=== PATIENT | male | born 1970 | race Caucasian/White ===

== ENCOUNTER 2017-02-20 22:03 | Inpatient (IN) | payer OTHER ==
[2017-02-20 22:13] LABS: BASOPHIL 0.2 % (0-2); EOSINOPHIL 0.4 % (0-5); HGB 16.8 g/dl (12.5-16.0); LYMPHOCYTE 12.4 % (15-48); MCH 29.7 pg (25.0-31.0); MCV 84.8 fL (78.0-100.0); MPV 11.4 fL (6.0-9.5); PLT 211 K/uL (150-400); RBC 5.66 M/uL (4.20-5.40); RDW 14.6 % (11.5-14.0)
[2017-02-20 22:14] LABS: WBC 16.9 K/uL (4.0-10.5)
[2017-02-20 22:24] LABS: INR 1.12 (0.9-1.2); PTT 24.1 SECONDS (23.2-31.4)
[2017-02-20 22:25] LABS: D-DIMER 0.74 ug/mLFEU (0.00-0.41)
[2017-02-20 22:34] LABS: ALBUMIN 4.4 g/dL (3.5-5.0); ALKALINE PHOSHATASE 139 U/L (42-98); ALT 150 U/L (2-31); AST 205 U/L (0-31); BILIRUBIN - TOTAL 2.3 mg/dL (0.1-1.0); BUN 12 mg/dL (6-25); CHLORIDE 99 mmol/L (98-107); CPK 75 U/L (26-140); CREATININE 1.1 mg/dL (0.5-1.0); GLOBULIN (CALCULATION) 2.5 g/dL (2.2-4.2); GLUCOSE 184 mg/dL (70-105); MAGNESIUM 1.93 mg/dL (1.40-2.10); MYOGLOBIN 21 ng/mL (26-65); POTASSIUM 3.7 mmol/L (3.5-5.1); PRO-BNP 29 pg/mL (0-125); TOTAL PROTEIN 6.9 g/dL (6.4-8.3); TROPONIN T < 0.010 ng/mL
[2017-02-20 22:40] LABS: LIPASE >600 U/L (13-60)
[2017-02-21 05:09] LABS: BASOPHIL 0.1 % (0-2); EOSINOPHIL 0.1 % (0-5); HGB 16.4 g/dl (12.5-16.0); LYMPHOCYTE 2.5 % (15-48); MCHC 34.9 g/dL (32.0-36.0); MCV 85.9 fL (78.0-100.0); MONOCYTE 4.2 % (0-12); MPV 11.3 fL (6.0-9.5); NEUTROPHIL 93.1 % (41-80); PLT 163 K/uL (150-400); RBC 5.47 M/uL (4.20-5.40); RDW 14.6 % (11.5-14.0)
[2017-02-21 05:10] LABS: WBC 14.5 K/uL (4.0-10.5)
[2017-02-21 05:26] LABS: ALBUMIN 3.7 g/dL (3.5-5.0); ALKALINE PHOSHATASE 128 U/L (42-98); ALT 185 U/L (2-31); AST 199 U/L (0-31); BILIRUBIN - TOTAL 2.3 mg/dL (0.1-1.0); BUN 13 mg/dL (6-25); CHLORIDE 104 mmol/L (98-107); CHOLESTEROL 154 mg/dL (20-200); GLOBULIN (CALCULATION) 2.3 g/dL (2.2-4.2); GLUCOSE 185 mg/dL (70-105); MAGNESIUM 1.74 mg/dL (1.40-2.10); POTASSIUM 4.3 mmol/L (3.5-5.1); TRIGLYCERIDES 34 mg/dL (20-200)
[2017-02-21 05:34] LABS: LIPASE >600 U/L (13-60)
== END 2017-02-21 13:46 | disposition other institution (70) | DRG 439 ==
LOC: FER 22:03 → EDSEX 02-21 01:15 → FMS 02-21 01:15
PROVIDERS: Emergency Medicine; Emergency Medicine Emergency Medical Services; ADMIT Internal Medicine
DX: K85.90 Acute pancreatitis without necrosis or infection, unspecified (principal); R65.10 Systemic inflammatory response syndrome (SIRS) of non-infectious origin without acute organ dysfunction; I10 Essential (primary) hypertension; Z91.041 Radiographic dye allergy status; Z90.49 Acquired absence of other specified parts of digestive tract; Z79.899 Other long term (current) drug therapy
CPT/HCPCS: 36415; 71250; 76705; 80053; 80061; 82550; 82553; 83690; 83735; 83874; 83880; 84484; 85025; 85379; 85610; 85730; 93005; C9113; J1170; J1644; J1885; J2185; J2270; J2405